=== PATIENT | female | born 2000 | race Caucasian/White ===

== ENCOUNTER 2022-05-18 14:39 | Emergency (ER) | payer MEDICAID ==
[~2022-05-18] VITALS: Ht 167.6 cm; Wt 76.0 kg
[2022-05-18] MEDS ORDERED: HALOPERIDOL LACTATE 5MG/ML VIAL IM STA (14:52)
[2022-05-18 16:54] LABS: BASOPHILS % 0.5 % (0.0-2.0); EOSINOPHILS % 1.6 % (0.0-5.0); HEMATOCRIT. 43.1 % (36.0-48.0); HEMOGLOBIN. 14.6 g/dL (12.0-16.0); LYMPHOCYTES % 38.2 % (20.0-50.0); MEAN CORPUSCULAR HEMOGLOBIN 30.2 pg (28.0-32.0); MONOCYTES % 3.7 % (2.0-8.0); PLATELET 294 x1000/uL (130-400); RED BLOOD CELL COUNT 4.84 mill/uL (4.2-5.4); RED CELL DISTRIBUTION WIDTH 13.2 % (11.6-14.6)
[2022-05-18 17:02] LABS: CHLORIDE 113 mEq/L (98-107)
[2022-05-18 17:20] LABS: ETHANOL BLOOD 320 mg/dL
[2022-05-18 20:00] VITALS: BP 125/79
== END 2022-05-18 20:05 | disposition home or self-care (01) ==
LOC: ER 14:44 → EDBD 14:44 → ER 20:05
DX: T51.0X1A Toxic effect of ethanol, accidental (unintentional), initial encounter (principal); G92.8 Other toxic encephalopathy; Y90.8 Blood alcohol level of 240 mg/100 ml or more; Z78.1 Physical restraint status; Y92.488 Other paved roadways as the place of occurrence of the external cause
CPT/HCPCS: 36415; 80053; 80320; 85025; 96372; 99285; J1630; G0480